=== PATIENT | male | born 1955 ===

== ENCOUNTER 2023-10-20 12:15 | Inpatient (IN) | payer OTHER ==
[~2023-10-20] VITALS: Ht 167.6 cm; Wt 99.8 kg
[2023-10-20] MEDS ORDERED: LOSARTAN POTASSI1 GM MC (13:35)
[2023-10-20] MEDS ORDERED: FARXIGA10 MG PO (13:35)
[2023-10-20] MEDS ORDERED: PLAVIX75 MG PO (13:35)
[2023-10-20] MEDS ORDERED: CHILDREN'S ASPI81 MG PO (13:36)
[2023-10-20] MEDS ORDERED: LIPITOR40 M1 PO (13:36)
[2023-10-20] MEDS ORDERED: DRAMAMINE LESS25 MG (13:36)
[2023-10-20] MEDS ORDERED: NORVASC10 MG PO (13:37)
[2023-10-20] MEDS ORDERED: TOPROL XL50 M1 PO (13:39)
[2023-10-26] MEDS ORDERED: MEDROLPACK PO (14:06)
[2023-10-26] MEDS ORDERED: AMOX-CLAV 875-1 EACH PO (14:06)
[2023-10-26] MEDS ORDERED: PERCOCET 5-3251 EACH PO (14:06)
[2023-10-26] MEDS ORDERED: GABAPENTIN100 M2 PO (14:07)
[2023-10-26] MEDS ORDERED: COLACE100 MG PO (14:07)
[2023-10-26] MEDS ORDERED: NEURONTIN800 MG PO (14:07)
[2023-10-26] MEDS ORDERED: VANCOMYCIN HCL 1,000 MG VIAL ONE ×3 (14:43→20:57)
[2023-10-26] MEDS ORDERED: CEFAZOLIN SODIUM 1,000 MG VIAL ONE (14:43)
[2023-10-26] MEDS ORDERED: HEMOSTATIC MATRIX 1 KIT KIT TOP ONE (15:15)
[2023-10-26] MEDS ORDERED: METHYLPREDNISOLONE SOD SUCC 125 MG VIAL ONE (15:16)
[2023-10-26] MEDS ORDERED: METHYLPREDNISOLONE ACETATE 80 MG/ML VIAL ONE (16:51)
[2023-10-26] MEDS ORDERED: ENALAPRILAT DIHYDRATE 1.25 MG/ML VIAL IV PRN (17:00)
[2023-10-26] MEDS ORDERED: PROMETHAZINE HCL 50 MG/ML AMPUL IM PRN (17:00)
[2023-10-26] MEDS ORDERED: MORPHINE SULFATE 4 MG/ML VIAL IV SCH (17:00)
[2023-10-26] MEDS ORDERED: DOCUSATE SODIUM 100MG CAP PO SCH (17:00)
[2023-10-26] MEDS ORDERED: CEFAZOLIN SODIUM 1,000 MG in 0.9 % SODIUM CHLORIDE 50 ML IV SCH (17:00)
[2023-10-26] MEDS ORDERED: FAMOtidine 20 MG TABLET PO SCH (17:00)
[2023-10-26] MEDS ORDERED: METHYLPREDNISOLONE SOD SUCC 125 MG VIAL IV SCH (17:00)
[2023-10-26] MEDS ORDERED: 0.9 % SODIUM CHLORIDE 1,000 ML IV SCH (17:00)
[2023-10-26] MEDS ORDERED: TRANEXAMIC ACID 100MG/1ML (1000MG) AMPUL IV ONE (17:55)
[2023-10-26] MEDS ORDERED: GABAPENTIN 800 MG TABLET PO SCH (21:00)
[2023-10-26] MEDS ORDERED: MORPHINE SULFATE 2 MG,MORPHINE SULFATE 4 MG IV SCH (21:00)
[2023-10-26] MEDS ORDERED: VANCOMYCIN HCL 1,000 MG VIAL IV SCH (21:00)
[2023-10-26] MEDS ORDERED: AMLODIPINE BESYLATE 10 MG TABLET PO SCH (21:00)
[2023-10-27] MEDS ORDERED: SODIUM CHLORIDE 0.45 % 1,000 ML IV SCH
[2023-10-27] MEDS ORDERED: OxyCODONE HCL/APAP UD (PERCOCET) PO PRN (06:01)
[2023-10-27 07:22] LABS: HEMATOCRIT 39.6 % (39.0-48.0); HEMOGLOBIN 13.6 g/dL (13-16.00); MEAN CELL VOLUME 96.2 fL (80.0-100.00); MEAN CORPUSCULAR HGB CONC 34.3 g/dl (32.0-36.0); PLATELET COUNT 207 K/uL (150-450); RED BLOOD COUNT 4.11 M/uL (4.00-6.00); RED CELL DISTRIBUTION WIDTH 13.6 % (11.5-14.5)
[2023-10-27 08:05] LABS: CALCIUM 8.8 mg/dL (8.5-10.1); CREATININE SERUM 1.15 mg/dL (0.70-1.30); GFR 63.62; POTASSIUM 4.51 mEq/L (3.5-5.1)
[2023-10-27] MEDS ORDERED: TAMSULOSIN HCL 0.4 MG CAP PO SCH (09:00)
[2023-10-27] MEDS ORDERED: LOSARTAN POTASSIUM 100 MG TABLET PO SCH (09:00)
[2023-10-27] MEDS ORDERED: METOPROLOL SUCCINATE 100 MG TAB.SR.24H PO SCH (09:00)
[2023-10-28] MEDS ORDERED: ENOXAPARIN SODIUM 40 MG/0.4 ML SYRINGE SUBCUTANEO SCH (09:00)
== END 2023-10-28 13:48 | DRG 455 ==
LOC: O/R 10-26 10:01 → SURH 10-26 12:15
PROVIDERS: ADMIT Orthopaedic Surgery Orthopaedic Surgery of the Spine; ATTEND Orthopaedic Surgery Orthopaedic Surgery of the Spine
PROC: 0SG0071 Fusion of Lumbar Vertebral Joint with Autologous Tissue Substitute, Posterior Approach, Posterior Column, Open Approach (ICD-10-PCS; 2023-10-26)
PROC: 0ST20ZZ Resection of Lumbar Vertebral Disc, Open Approach (ICD-10-PCS; 2023-10-26)
PROC: 0QB30ZZ Excision of Left Pelvic Bone, Open Approach (ICD-10-PCS; 2023-10-26)
PROC: 07DR0ZZ Extraction of Iliac Bone Marrow, Open Approach (ICD-10-PCS; 2023-10-26)
PROC: 4A1104G Monitoring of Peripheral Nervous Electrical Activity, Intraoperative, Open Approach (ICD-10-PCS; 2023-10-26)
PROC: 0SG00A0 Fusion of Lumbar Vertebral Joint with Interbody Fusion Device, Anterior Approach, Anterior Column, Open Approach (ICD-10-PCS; principal; 2023-10-26 16:45)
DX: M43.16 Spondylolisthesis, lumbar region (principal); M48.062 Spinal stenosis, lumbar region with neurogenic claudication